=== PATIENT | male | born 1985 | race Caucasian/White ===

== ENCOUNTER 2017-04-15 15:56 | Emergency (ER) | payer OTHER ==
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
[2017-04-15] MEDS ORDERED: NAPROXEN 250 MG TABLET PO ONE (18:02)
--- NOTE | 2017-04-16 08:48 | RADIOLOGY REPORT ---
EXAM: LEFT CLAVICLE HISTORY: COLLAR BONE PAIN. TECHNIQUE: Two views of the left clavicle were obtained. Comparison: None. FINDINGS: No evidence for fracture or dislocation. The soft tissues are unremarkable. The joint spaces are preserved. IMPRESSION: NEGATIVE LEFT CLAVICLE EXAMINATION. JOB NUMBER: [id number] MTDD
== END 2017-04-15 18:32 | disposition home or self-care (01) ==
LOC: ER 15:56
DX: S46.912A Strain of unspecified muscle, fascia and tendon at shoulder and upper arm level, left arm, initial encounter (principal); S16.1XXA Strain of muscle, fascia and tendon at neck level, initial encounter; X50.0XXA Overexertion from strenuous movement or load, initial encounter; Y93.E6 Activity, residential relocation
CPT/HCPCS: 99283